=== PATIENT | female | born 1985 | race African-American/Black ===

== ENCOUNTER 2016-12-23 16:59 | Emergency (ER) | payer OTHER ==
[~2016-12-23] VITALS: Ht 165.1 cm; Wt 86.2 kg
[~2016-12-23 16:59] MED LIST: FLUT9.9S NS; LORA10TA68 PO; NAPR500T PO
[2016-12-23 17:02] VITALS: BP 147/104
[2016-12-23] MEDS ORDERED: PRED50TA PO (17:34)
[2016-12-23] MEDS ORDERED: AMOX1TAB61 PO (17:34)
[2016-12-23] MEDS ORDERED: FLUT9.9S NS (17:34)
--- NOTE | 2016-12-23 17:35 | PHYS DOC ---
Past Medical History Past Medical History: No Pertinent History Past Surgical History: No Surgical History Alcohol Use: Occasionally Drug Use: None Adult General Chief Complaint Chief Complaint: Congestion HPI HPI Patient is a 31 year old female who presents with nasal congestion that has been going on for 6 months. Patient denies any fever coughing or congestion. She states she missed her appointment at [facility]. Review of Systems Review of Systems Constitutional: See history of present illness Eyes: Denies change in visual acuity, redness, or eye pain [] HENT:nasal congestion Respiratory: See history of present illness Cardiovascular: No additional information not addressed in HPI [] GI: Denies abdominal pain, nausea, vomiting, bloody stools or diarrhea [] : Denies dysuria or hematuria [] Musculoskeletal: Denies back pain or joint pain [] Integument: Denies rash or skin lesions [] Neurologic: Denies headache, focal weakness or sensory changes [] Endocrine: Denies polyuria or polydipsia [] Allergies Allergies Allergies Coded Allergies Type Severity Reaction Last Updated Verified No Known Drug Allergies 09/16/13 No Physical Exam Physical Exam Constitutional: Well developed, well nourished, no acute distress, non-toxic appearance. [] HENT: Normocephalic, atraumatic, bilateral external ears normal, oropharynx moist, no oral exudates, Patient is congested nasally. Mild frontal and maxillary sinus tenderness on exam. Bilateral nasal turbinates are boggy and erythematous. Eyes: PERRLA, EOMI, conjunctiva normal, no discharge. [] Neck: Normal range of motion, no tenderness, supple, no stridor. [] Cardiovascular:Heart rate regular rhythm, no murmur [] Lungs & Thorax: Bilateral breath sounds clear to auscultation [] Abdomen: Bowel sounds normal, soft, no tenderness, no masses, no pulsatile masses. [] Skin: Warm, dry, no erythema, no rash. [] Back: No tenderness, no CVA tenderness. [] Extremities: No tenderness, no cyanosis, no clubbing, ROM intact, no edema. [] Neurologic: Alert and oriented X 3, normal motor function, normal sensory function, no focal deficits noted. [] Psychologic: Affect normal, judgement normal, mood normal. [] Current Patient Data Vital Signs Vital Signs Date Time Temp Pulse Resp B/P Pulse Ox O2 Delivery O2 Flow Rate FiO2 3/25/17 17:02 97.6 62 18 100 Room Air 97.6 EKG EKG [] Radiology/Procedures Radiology/Procedures [] Course & Med Decision Making Course & Med Decision Making Pertinent Labs and Imaging studies reviewed. (See chart for details) Patient is in the ED with a sinus infection. Discharged with a Augmentin and prednisone. Discharged with Flonase. Provided ENT for follow-up. Dragon Disclaimer Dragon Disclaimer This electronic medical record was generated, in whole or in part, using a voice recognition dictation system. Departure Departure Impression: Primary Impression: Acute sinusitis Disposition: HOME, SELF-CARE Condition: STABLE Referrals: UNKNOWN PCP NAME (PCP) follow up with Dr. Oakes ENT at [phone] Please let the office know you live in [facility]. Patient Instructions: Sinusitis Additional Instructions: You were seen for sinus infection. Kindly complete your antibiotics. Follow-up with the provided ENT doctor as soon as you can. Scripts Fluticasone Propionate (Flonase Allergy Relief)9.9 Ml [place].susp2 Sprays NS DAILY #1 BOTTLE Prov:HAMIDA POTTS APRN 12/23/16 Prednisone 50 Mg Tablet1 Tab PO DAILY #5 TAB Prov:HAMIDA POTTS APRN 12/23/16 Amoxicillin/Potassium Clav (Augmentin 875-125 Tablet)1 Each Tablet1 Tab PO BID # 20 TAB Prov:HAMIDA POTTS APRN 12/23/16 Problem Qualifiers Primary Impression: Acute sinusitis Sinusitis location: maxillary Recurrence: recurrent Qualified Code: J01.01 - Acute recurrent maxillary sinusitis HAMIDA POTTS APRN Dec 23, 2016 17:34
== END 2016-12-23 17:41 | disposition home or self-care (01) ==
LOC: ER 16:59
DX: J01.90 Acute sinusitis, unspecified (principal)
CPT/HCPCS: 99283

== ENCOUNTER 2017-01-31 12:06 | Emergency (ER) | payer OTHER ==
[~2017-01-31] VITALS: Ht 165.1 cm; Wt 85.7 kg
[~2017-01-31 12:06] MED LIST changes: +AMOX1TAB61 PO; +PRED50TA PO
[2017-01-31 12:15] VITALS: BP 138/91
--- NOTE | 2017-01-31 12:42 | PHYS DOC ---
Past Medical History Past Medical History: No Pertinent History Past Surgical History: No Surgical History Alcohol Use: None Drug Use: None Adult General Chief Complaint Chief Complaint: SEXUALLY TRANSMITTED DISEASE HPI HPI Patient is a 31 year old female presents emergency Department today with concerns for possible STD or /requesting the morning after pill after having intercourse last night. Patient states that she has no dysuria, pelvic pain, vaginal discharge or vaginal bleeding. Review of Systems Review of Systems Constitutional: Denies fever or chills [] Eyes: Denies change in visual acuity, redness, or eye pain [] HENT: Denies nasal congestion or sore throat [] Respiratory: Denies cough or shortness of breath [] Cardiovascular: No additional information not addressed in HPI [] GI: Denies abdominal pain, nausea, vomiting, bloody stools or diarrhea [] : Denies dysuria or hematuria [] Musculoskeletal: Denies back pain or joint pain [] Integument: Denies rash or skin lesions [] Neurologic: Denies headache, focal weakness or sensory changes [] Endocrine: Denies polyuria or polydipsia [] Allergies Allergies Allergies Coded Allergies Type Severity Reaction Last Updated Verified No Known Drug Allergies 09/16/13 No Physical Exam Physical Exam Constitutional: Well developed, well nourished, no acute distress, non-toxic appearance. [] HENT: Normocephalic, atraumatic, bilateral external ears normal, oropharynx moist, no oral exudates, nose normal. [] Eyes: PERRLA, EOMI, conjunctiva normal, no discharge. [] Neck: Normal range of motion, no tenderness, supple, no stridor. [] Cardiovascular:Heart rate regular rhythm, no murmur [] Lungs & Thorax: Bilateral breath sounds clear to auscultation [] Abdomen: Bowel sounds normal, soft, no tenderness, no masses, no pulsatile masses. [] Skin: Warm, dry, no erythema, no rash. [] Back: No tenderness, no CVA tenderness. [] Extremities: No tenderness, no cyanosis, no clubbing, ROM intact, no edema. [] Neurologic: Alert and oriented X 3, normal motor function, normal sensory function, no focal deficits noted. [] Psychologic: Affect normal, judgement normal, mood normal. [] Current Patient Data Vital Signs Vital Signs Date Time Temp Pulse Resp B/P Pulse Ox O2 Delivery O2 Flow Rate FiO2 5/3/17 12:15 97.6 77 16 99 Room Air 97.6 EKG EKG [] Radiology/Procedures Radiology/Procedures [] Course & Med Decision Making Course & Med Decision Making Patient presents emergency Department today with concerns for having unprotected intercourse last night she denies vaginal discharge, vaginal bleeding, pelvic pain. She denies any dysuria and hematuria. Patient requested the "morning after pill". 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 Dragon Disclaimer Dragon Disclaimer This electronic medical record was generated, in whole or in part, using a voice recognition dictation system. Departure Departure Impression: Primary Impression: Concern about STD in female without diagnosis Disposition: 01 HOME, SELF-CARE Condition: GOOD Referrals: UNKNOWN PCP NAME (PCP) Additional Instructions: 1. Be sure to return to the emergency department or go to the health department if you develop vaginal discharge, pelvic pain, difficulty urinating. 2. You can also follow up with a primary care doctor or body shop estimator. A pamphlet is provided to you for assistance in finding one. TATIANA MALDONADO January 31, 2017 12:42
== END 2017-01-31 12:52 | disposition home or self-care (01) ==
LOC: ER 12:06
DX: Z11.3 Encounter for screening for infections with a predominantly sexual mode of transmission (principal)
CPT/HCPCS: 99281

== ENCOUNTER 2017-07-13 09:29 | Emergency (ER) | payer OTHER ==
[~2017-07-13] VITALS: Ht 165.1 cm; Wt 88.5 kg
[2017-07-13 09:37] VITALS: BP 151/101
[2017-07-13] MEDS ORDERED: PSEUDOEPHEDRINE 30 MG TABLET. PO ONE (09:45)
[2017-07-13] MEDS ORDERED: guaiFENesin DM 600/30MG 1 TAB TAB.ER.12H PO ONE (09:45)
[2017-07-13] MEDS ORDERED: PRED20TA PO (09:49)
[2017-07-13] MEDS ORDERED: AMOX1TAB61 PO (09:49)
--- NOTE | 2017-07-13 09:49 | PHYS DOC ---
Past Medical History Past Medical History: Anxiety Past Surgical History: No Surgical History Alcohol Use: Rarely Drug Use: None Adult General Chief Complaint Chief Complaint: COUGH HPI HPI Patient is a 32 year old female presents to the emergency department with a history of cough, congestion and maxillary sinu pressure for the last week. She states she has used her flonase twice without relief. She denies fever, chills, nausea or vomiting. Patient states she unable to breath out of her nose lastnight and felt like she was having anxiety issues. Review of Systems Review of Systems Constitutional: Denies fever or chills [] Eyes: Denies change in visual acuity, redness, or eye pain [] HENT: nasal congestion denies sore throat [] Respiratory: cough and shortness of breath when coughing and lying down[] Cardiovascular: No additional information not addressed in HPI [] GI: Denies abdominal pain, nausea, vomiting, bloody stools or diarrhea [] : Denies dysuria or hematuria [] Musculoskeletal: Denies back pain or joint pain [] Integument: Denies rash or skin lesions [] Neurologic: Denies headache, focal weakness or sensory changes [] Endocrine: Denies polyuria or polydipsia [] Current Medications Current Medications Current Medications Medications (Trade) Dose Ordered Sig/Casi Start Time Stop Time Status Last Admin Dose Admin Guaifenesin (MUCINEX ER with DM) 1 tab 1X ONCE 07/13/17 09:45 07/13/17 09:46 UNV Allergies Allergies Allergies Coded Allergies Type Severity Reaction Last Updated Verified No Known Drug Allergies 09/16/13 No Physical Exam Physical Exam Constitutional: Well developed, well nourished, no acute distress, non-toxic appearance. [] HENT: Normocephalic, atraumatic, bilateral external ears normal, oropharynx moist, no oral exudates, nose normal. Bilateral TM normal, throat with redness noted, no exudate noted. Patient with tenderness noted over the maxillary sinus areas. Eyes: PERRLA, EOMI, conjunctiva normal, no discharge. [] Neck: Normal range of motion, no tenderness, supple, no stridor. [] Cardiovascular:Heart rate regular rhythm, no murmur [] Lungs & Thorax: Bilateral breath sounds clear to auscultation [] Skin: Warm, dry, no erythema, no rash. [] Back: No tenderness Extremities: No tenderness, no cyanosis, no clubbing, ROM intact, no edema. [] Neurologic: Alert and oriented X 3, normal motor function, normal sensory function, no focal deficits noted. [] Psychologic: Affect normal, judgement normal, mood normal. [] Current Patient Data Vital Signs Vital Signs Date Time Temp Pulse Resp B/P (MAP) Pulse Ox O2 Delivery O2 Flow Rate FiO2 07/13/17 09:37 98.0 92 18 98 Room Air 98.0 EKG EKG [] Radiology/Procedures Radiology/Procedures [] Course & Med Decision Making Course & Med Decision Making Pertinent Labs and Imaging studies reviewed. (See chart for details) As instructed to continue to use her Flonase. Recommended Sudafed and Mucinex DM. She'll be provided with Augmentin and prednisone at discharge. Patient will be discharged home with recommendations to follow-up the primary care physician in the next week. Signs and symptoms to return back to emergency department been provided. All questions and concerns been answered at patient's bedside. Patient agrees with discharge instructions treatment regimens and follow-up recommendations. [] Dragon Disclaimer Dragon Disclaimer This electronic medical record was generated, in whole or in part, using a voice recognition dictation system. Departure Departure Impression: Primary Impression: Acute sinusitis Disposition: HOME, SELF-CARE Condition: STABLE Referrals: UNKNOWN PCP NAME (PCP) Patient Instructions: Sinusitis, [id number] Additional Instructions: Activity as tolerated Medication as prescribed Tylenol or Ibuprofen for fever, chills, or generalized body aches Sudafed and Mucinex DM as directed by manufacture over the counter Drink plenty of fluids Followup with your primary care provider in 5-7 days Return to emergency department as needed for signs and symptoms that become worse. Scripts Prednisone (PREDNISONE) 20 Mg Tablet 40 MG PO DAILY for 7 Days, #14 TAB Prov: STACY MACK APRN 07/13/17 Amoxicillin/Potassium Clav (AUGMENTIN 875-125 TABLET) 1 Each Tablet 1 TAB PO BID, #20 TAB Prov: STACY MACK APRN 07/13/17 Problem Qualifiers Primary Impression: Acute sinusitis Sinusitis location: unspecified location Recurrence: not specified as recurrent Qualified Codes: J01.90 - Acute sinusitis, unspecified STACY MACK APRN Jul 13, 2017 09:49
[2017-07-13] MEDS ORDERED: FLUT9.9S NS (09:55)
== END 2017-07-13 09:59 | disposition home or self-care (01) ==
LOC: ER 09:29
DX: J01.90 Acute sinusitis, unspecified (principal)
CPT/HCPCS: 99283

== ENCOUNTER 2017-08-31 14:29 | Emergency (ER) | payer OTHER ==
[~2017-08-31] VITALS: Ht 165.1 cm; Wt 88.5 kg
[~2017-08-31 14:29] MED LIST changes: +NAPR-683 PO; -NAPR500T PO; +PRED20TA PO
[2017-08-31] MEDS ORDERED: PRAZ2CAP2 PO (14:59)
[2017-08-31] MEDS ORDERED: VENL37.56 PO (15:00)
[2017-08-31] MEDS ORDERED: ASPIRIN CHEWABLE 81 MG TABLET. PO ONE (15:45)
[2017-08-31 15:58] LABS: BILIRUBIN,URINE NEGATIVE (NEG); GLUCOSE,URINE NEGATIVE (NEG); NITRITE,URINE NEGATIVE (NEG); PROTEIN,URINE NEGATIVE (NEG-TRACE); UROBILINOGEN,URINE 0.2 mg/dL (0.2 mg/dL)
--- NOTE | 2017-08-31 16:00 | EKG ---
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
[2017-08-31 16:02] LABS: BARBITURATES NEG (NEG); BENZODIAZEPINES NEG (NEG); CANNABINOIDS NEG (NEG); COCAINE NEG (NEG); METHADONE NEG (NEG); OPIATES NEG (NEG); PHENCYCLIDINE POS (NEG)
--- NOTE | 2017-08-31 16:02 | RAD ---
Portable chest, 08/31/2017: History: Hypertension, weakness and fatigue The heart size and pulmonary vascularity are normal. No pulmonary infiltrates are seen. There is no evidence of pleural fluid. IMPRESSION: No acute cardiopulmonary abnormality is detected.
[2017-08-31 16:06] LABS: BASO # 0.1 x10^3/uL (0.0-0.2); BASO % 1 % (0-3); EOS % 0 % (0-3); HEMATOCRIT 40.4 % (36.0-47.0); HEMOGLOBIN 13.5 g/dL (12.0-15.5); LYMPH # 1.2 x10^3/uL (1.0-4.8); LYMPH % 12 % (24-48); MEAN CORPUSCULAR HEMOGLOBIN 29 pg (25-35); MEAN CORPUSCULAR HGB CONC 33 g/dL (31-37); MEAN CORPUSCULAR VOLUME 87 fL (79-100); MONO % 6 % (0-9); NEUT % 81 % (31-73); PLATELET COUNT 206 x10^3/uL (140-400); RED BLOOD COUNT 4.66 x10^6/uL (3.50-5.40); WHITE BLOOD COUNT 10.4 x10^3/uL (4.0-11.0)
[2017-08-31 16:07] LABS: BACTERIA,URINE FEW /HPF (0-FEW); RBC,URINE 0 /HPF (0-2); SQUAMOUS EPITHELIAL CELL,UR FEW /LPF; WBC,URINE 0 /HPF (0-4)
[2017-08-31 16:18] LABS: CALCIUM 9.7 mg/dL (8.5-10.1); CREATININE 0.8 mg/dL (0.6-1.0); GFR 100.6; POTASSIUM 3.7 mmol/L (3.5-5.1)
--- NOTE | 2017-08-31 16:20 | ED.ADGEN ---
Past Medical History Past Medical History: Anxiety Additional Past Medical Histor: PTSD Past Surgical History: No Surgical History Alcohol Use: Occasionally Drug Use: Cocaine, Marijuana Adult General Chief Complaint Chief Complaint: CHEST PAIN HPI HPI Patient is a 32 year old woman, history of anxiety, PTSD, who presents emergency Department with multiple complaints. Patient states that earlier this afternoon, she began feeling generally unwell, states that she was feeling tired , thought that she maybe fever, and developed sharp shooting chest pains, and a feeling of constipation. Patient received a laxative did have a loose bowel movement, she denies any nausea or vomiting, diarrhea shortness of breath, any focal weakness, numbness or tingling, any recent travel or surgery. She states she 2 beers yesterday, denies any other ingestions or exposures, denies any suicidal homicidal ideations, states that "I just feel anxious". She states family issues as the source of her anxiety, states that she is having "a difficult time at home". She states she has been taking her antianxiety medications as directed, she is taking Effexor and Arina, states that there were increased 3 weeks ago by her primary care provider, she also sees a therapist at her next appointment is the 16 of September. She denies similar symptoms previously. No injuries, no recent travel or surgery, history of DVT or PE in herself or family members, no known history of cardiac disease in young people in her family. Review of Systems Review of Systems Constitutional: Denies fever or chills. [] Eyes: Denies change in visual acuity. [] HENT: Denies nasal congestion or sore throat. [] Respiratory: Denies cough or shortness of breath. [] Cardiovascular: Denies chest pain or edema. [] GI: Denies abdominal pain, nausea, vomiting, bloody stools or diarrhea. [] : Denies dysuria. [] Musculoskeletal: Denies back pain or joint pain. [] Integument: Denies rash. [] Neurologic: Denies headache, focal weakness or sensory changes. [] Endocrine: Denies polyuria or polydipsia. [] Lymphatic: Denies swollen glands. [] Psychiatric: Denies depression or anxiety. [] Current Medications Current Medications Allergies Allergies Allergies Coded Allergies Type Severity Reaction Last Updated Verified No Known Drug Allergies 09/16/13 No Physical Exam Physical Exam Constitutional: Well developed, well nourished, no acute distress, non-toxic appearance. [] HENT: Normocephalic, atraumatic, bilateral external ears normal, oropharynx moist, no oral exudates, nose normal. [] Eyes: PERRLA, EOMI, conjunctiva normal, no discharge. [] Neck: Normal range of motion, no tenderness, supple, no stridor. [] Cardiovascular:Heart rate regular rhythm, no murmur [] Lungs & Thorax: Bilateral breath sounds clear to auscultation [] Abdomen: Bowel sounds normal, soft, no tenderness, no masses, no pulsatile masses. [] Skin: Warm, dry, no erythema, no rash. [] Back: No tenderness, no CVA tenderness. [] Extremities: No tenderness, no cyanosis, no clubbing, ROM intact, no edema. [] Neurologic: Alert and oriented X 3, normal motor function, normal sensory function, no focal deficits noted. [] Psychologic: Affect normal, judgement normal, mood normal. [] Current Patient Data Vital Signs Vital Signs Date Time Temp Pulse Resp B/P (MAP) Pulse Ox O2 Delivery O2 Flow Rate FiO2 08/31/17 14:48 99.5 94 20 183/119 (140) 100 Room Air 99.5 Lab Values Laboratory Tests Test 08/31/17 14:55 08/31/17 14:59 Urine Collection Type Unknown Urine Color Straw Urine Clarity Clear Urine pH 6.0 Urine Specific [place] 1.010 Urine Protein Negative mg/dL (NEG-TRACE) Urine Glucose (UA) Negative mg/dL (NEG) Urine Ketones (Stick) Trace mg/dL (NEG) Urine Blood Negative (NEG) Urine Nitrite Negative (NEG) Urine Bilirubin Negative (NEG) Urine Urobilinogen Dipstick 0.2 mg/dL (0.2 mg/dL) Urine Leukocyte Esterase Negative (NEG) Urine RBC 0 /HPF (0-2) Urine WBC 0 /HPF (0-4) Urine Squamous Epithelial Cells Few /LPF Urine Bacteria Few /HPF (0-FEW) Urine Opiates Screen Neg (NEG) Urine Methadone Screen Neg (NEG) Urine Barbiturates Neg (NEG) Urine Phencyclidine Screen Pos (NEG) Urine Amphetamine/Methamphetamine Neg (NEG) Urine Benzodiazepines Screen Neg (NEG) Urine Cocaine Screen Neg (NEG) Urine Cannabinoids Screen Neg (NEG) Urine Ethyl Alcohol Neg (NEG) POC Urine HCG, Qualitative Hcg negative (Negative) EKG EKG EC: Sinus rhythm, heart rate 96 beats/minute, upright axis, QTC of 489, [place] of 84, QRS of 82, no ST elevations or depressions, patient with left axis deviation noted, some baseline artifact also noted, no prior for comparison, Amaryl ECG, does not meet STEMI criteria. As interpreted by me. Radiology/Procedures Radiology/Procedures [][facility] [address] [place] [address] IMAGING REPORT Signed PATIENT: DEJA CONRAD ACCOUNT: [id number] : 1985 LOCATION: ER AGE: 32 SEX: F EXAM STATUS: REG ER ORD. PHYSICIAN: FERNANDO OROURKE DO REASON: CP PROCEDURE: PORTABLE CHEST 1V Portable chest, 08/31/2017: History: Hypertension, weakness and fatigue The heart size and pulmonary vascularity are normal. No pulmonary infiltrates are seen. There is no evidence of pleural fluid. IMPRESSION: No acute cardiopulmonary abnormality is detected. DICTATED and SIGNED BY: TERRIE GRIMES MD DATE: 08/31/17 1558 CC: FERNANDO OROURKE DO; UNKNOWN PCP NAME ~ Course & Med Decision Making Course & Med Decision Making Pertinent Labs and Imaging studies reviewed. (See chart for details) Patient states that she feels illnesses or anxiety, is experiencing intermittent sharp chest pains, denies any shortness breath, any other concerning history. She did deny any drugs or alcohol, or taking any medications to treat her symptoms, is complaining of generalized malaise as well. She is agreeable to receiving laboratory studies and chest x-ray. Chest x- ray was unremarkable, laboratory studies did not reveal any concerning findings , aside from a urine drug screen positive for PCP. As stated, patient denies any medications that could be causing a false positive, also denies any drug use. Noted to have trace ketones in the urine, tolerating by mouth fluids in the ED. While awaiting a second troponin to follow the HEART score, I was contacted by the nursing staff that the patient had pulled out her IV, stating that she was leaving AGAINST MEDICAL ADVICE. I did go back and speak with the patient, she states that "I'm cold and I'm hungry and I want to leave". She otherwise has no complaints at this time. After additional discussion patient is agreeable to receiving a second troponin and second ECG per the score. Her score is 1, for hypertension. Blood pressure has improved in the ED. Repeat ECG did not reveal any acutely concerning findings, patient again is stating that she wants to leave, I did discuss with patient importance of follow-up, instructed her to call her primary care provider for follow-up, and also call her therapist to see if she can get an earlier appointment, to continue her medications as instructed, she may be experiencing a viral illness, and pushing fluids and using [id number] medications such as acetaminophen and ibuprofen is appropriate, as would be return to the ED at any time for additional evaluation. Patient was also given the crisis RSI number to contact that she does feel overwhelmed. Patient did voice understanding, she exited the emergency department without difficulty with plan and precautions as above. Dragon Disclaimer Dragon Disclaimer This electronic medical record was generated, in whole or in part, using a voice recognition dictation system. Departure Impression: Primary Impression: Anxiety Additional Impression: Chest pain Disposition: 01 HOME, SELF-CARE Condition: IMPROVED Problem Qualifiers FERNANDO OROURKE DO Aug 31, 2017 16:20
[2017-08-31 16:24] LABS: ALBUMIN 4.7 g/dL (3.4-5.0); ALBUMIN/GLOBULIN RATIO 1.5 (1.0-1.7); TOTAL BILIRUBIN 0.6 mg/dL (0.2-1.0); TOTAL PROTEIN 7.9 g/dL (6.4-8.2)
[2017-08-31 17:45] VITALS: BP 183/117
--- NOTE | 2017-09-01 09:07 | EKG ---
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
== END 2017-08-31 18:17 | disposition home or self-care (01) ==
LOC: ER 14:29 → UNDOADMIN 15:40 → 5 NORTH 15:40 → ER 18:17
DX: R07.89 Other chest pain (principal); F41.9 Anxiety disorder, unspecified; F43.10 Post-traumatic stress disorder, unspecified; F14.10 Cocaine abuse, uncomplicated; F12.10 Cannabis abuse, uncomplicated
CPT/HCPCS: 36415; 71010; 80053; 80307; 81001; 81025; 83690; 83880; 84484; 85025; 93005; 99285-25; G0479

== ENCOUNTER 2018-01-21 15:46 | Emergency (ER) | payer OTHER | END 2018-01-21 16:40 | disposition home or self-care (01) | LOC: ER 15:46 | DX: J30.9 Allergic rhinitis, unspecified (principal); F43.10 Post-traumatic stress disorder, unspecified; F14.10 Cocaine abuse, uncomplicated; F12.10 Cannabis abuse, uncomplicated | CPT/HCPCS: 99283 ==

== ENCOUNTER 2019-03-29 12:50 | Emergency (ER) | payer OTHER ==
[~2019-03-29] VITALS: Ht 165.1 cm; Wt 90.7 kg
[~2019-03-29 12:50] MED LIST changes: +PRAZ2CAP2 PO; +VENL37.56 PO
[2019-03-29 13:15] VITALS: BP 164/101
--- NOTE | 2019-03-29 13:28 | PHYS DOC ---
Past Medical History Past Medical History: Anxiety Additional Past Medical Histor: PTSD Past Surgical History: No Surgical History Alcohol Use: Occasionally Drug Use: Cocaine, Marijuana Adult General Chief Complaint Chief Complaint: Congestion HPI HPI Patient is a 33 year old female presents with hoarseness, sore throat, headache, congestion, runny nose been ongoing for 1 week. Also has left elbow swelling. Has been taking Mucinex, Tylenol, Flonase, and Advil at home. Helped some but states her pain as 8 out of 10 and describes as pressure. Review of Systems Review of Systems Constitutional: Denies fever or chills [] Eyes: Denies change in visual acuity, redness, or eye pain [] HENT: Reports nasal congestion and sore throat [] Respiratory: Reports cough but denies shortness of breath [] Cardiovascular: No additional information not addressed in HPI [] GI: Denies abdominal pain, nausea, vomiting, bloody stools or diarrhea [] : Denies dysuria or hematuria [] Musculoskeletal: Denies back pain or joint pain [] Integument: Denies rash or skin lesions [] Neurologic: Reports headache denies focal weakness or sensory changes [] Endocrine: Denies polyuria or polydipsia [] Complete systems were reviewed and found to be within normal limits, except as documented in this note. Current Medications Current Medications Current Medications Medications (Trade) Dose Ordered Sig/Casi Start Time Stop Time Status Last Admin Dose Admin Dexamethasone Sodium Phosphate (Decadron) 10 mg 1X STAT 03/29/19 13:30 03/29/19 13:31 DC 03/29/19 13:49 10 MG Allergies Allergies Allergies Coded Allergies Type Severity Reaction Last Updated Verified No Known Drug Allergies 09/16/13 No Physical Exam Physical Exam Constitutional: Well developed, well nourished, no acute distress, non-toxic appearance. [] HENT: Normocephalic, atraumatic, bilateral external ears normal, oropharynx moist, no oral exudates, erythema to the throat, nose normal. Has frontal sinus tenderness Eyes: PERRLA, EOMI, conjunctiva normal, no discharge. [] Neck: Normal range of motion, no tenderness, supple, no stridor. [] Cardiovascular:Heart rate regular rhythm, no murmur [] Lungs & Thorax: Bilateral breath sounds clear to auscultation [] Abdomen: Bowel sounds normal, soft, no tenderness, no masses, no pulsatile masses. [] Skin: Warm, dry, no erythema, no rash. [] Back: No tenderness, no CVA tenderness. [] Extremities: No tenderness, no cyanosis, no clubbing, ROM intact, no edema. [] Neurologic: Alert and oriented X 3, normal motor function, normal sensory function, no focal deficits noted. [] Psychologic: Affect normal, judgement normal, mood normal. [] Current Patient Data Vital Signs Vital Signs Date Time Temp Pulse Resp B/P (MAP) Pulse Ox O2 Delivery O2 Flow Rate FiO2 03/29/19 13:15 98.0 85 16 164/101 (122) 96 Room Air 98.0 EKG EKG [] Radiology/Procedures Radiology/Procedures [] Course & Med Decision Making Course & Med Decision Making Pertinent Labs and Imaging studies reviewed. (See chart for details) Appears to have an URI likely viral in nature. Will give Dexamethasone and have start taking zyrtec at home. Patient is agreeable to this. Dragon Disclaimer Dragon Disclaimer This electronic medical record was generated, in whole or in part, using a voice recognition dictation system. Departure Departure Impression: Primary Impression: Upper respiratory infection Disposition: HOME, SELF-CARE Condition: STABLE Referrals: UNKNOWN PCP NAME (PCP) Patient Instructions: Upper Respiratory Infection, Adult Additional Instructions: Thank you for visiting [facility]. We appreciate you trusting us with your care. If any additional problems come up don't hesitate to return to visit us. Please follow up with your primary care provider so they can plan additional care if needed and know about the problem that you had. If symptoms worsen come back to the Emergency Department. Any concerning symptoms that start such as chest pain, shortness of Air, weakness or numbness on one side of the body, running high fevers or any other concerning symptoms return to the ER. Please add Zyrtec daily to the medication you are taking for symptom management. Problem Qualifiers Primary Impression: Upper respiratory infection URI type: unspecified viral URI Qualified Codes: J06.9 - Acute upper respiratory infection, unspecified JOVANI ZAVALA APRN Mar 29, 2019 13:28
[2019-03-29] MEDS ORDERED: DEXAMETHASONE SOD PHOS 20 MG/5 ML VIAL. PO STA (13:30)
== END 2019-03-29 13:51 | disposition home or self-care (01) ==
LOC: ER 12:50
DX: J06.9 Acute upper respiratory infection, unspecified (principal); R51 Headache; F41.9 Anxiety disorder, unspecified
CPT/HCPCS: 99282; J1100

== ENCOUNTER 2021-10-09 15:32 | Emergency (ER) | payer MEDICAID, OTHER ==
[~2021-10-09] VITALS: Ht 165.1 cm; Wt 84.5 kg
[2021-10-09 18:40] VITALS: BP 144/81
[2021-10-09] MEDS: DEXAMETHASONE 4 MG TABLET PO ONE (20:00)
[2021-10-09] MEDS: IBUPROFEN 200 MG TABLET. PO ONE (20:00)
[2021-10-09] MEDS: ONDANSETRON ODT 4 MG TAB.RAPDIS. PO ONE (20:00)
--- NOTE | 2021-10-09 20:03 | PHYS DOC ---
Past Medical History Past Medical History: Anxiety Additional Past Medical Histor: PTSD Past Surgical History: No Surgical History Smoking Status: Current Every Day Smoker Alcohol Use: Occasionally Drug Use: Cocaine, Marijuana General Adult EDM: Chief Complaint: DIZZY/LIGHT HEADED HPI: HPI: Patient is a 36 year old female who presents with 5 days of head congestion, sinus pressure, cough, sore throat, nausea and some constipation causing her to have bloating. She states that her son was sick with a fever but it is gone away. She is vaccinated for Covid. She states that she took cold and flu medication this morning. She states she ate [employer] today and now she is feeling nauseated. Past medical history of anxiety, PTSD, smoking. At this time she rates her intermittent headache aching 9 out of 10. This is not the worst headache she is ever had. Patient denies abdominal pain, vomiting, diarrhea, chest pain, shortness of air, back pain, syncope, numbness or tingling, focal weakness, diarrhea. Review of Systems: Review of Systems: Constitutional: Denies fever or chills. [] Eyes: Denies change in visual acuity. [] HENT: Denies nasal congestion or sore throat. [] Respiratory: Denies cough or shortness of breath. [] Cardiovascular: Denies chest pain or edema. [] GI: Denies abdominal pain, nausea, vomiting, bloody stools or diarrhea. [] : Denies dysuria. [] Musculoskeletal: Denies back pain or joint pain. [] Integument: Denies rash. [] Neurologic: Denies headache, focal weakness or sensory changes. [] Endocrine: Denies polyuria or polydipsia. [] Lymphatic: Denies swollen glands. [] Psychiatric: Denies depression or anxiety. [] Heart Score: C/O Chest Pain: No Current Medications: Current Medications Medications (Trade) Dose Ordered Sig/Casi Start Time Stop Time Status Last Admin Dose Admin Dexamethasone (Decadron) 10 mg 1X ONCE 10/09/21 20:00 10/09/21 20:01 Ibuprofen (Motrin) 600 mg 1X ONCE 10/09/21 20:00 10/09/21 20:01 Ondansetron HCl (Zofran Odt) 4 mg 1X ONCE 10/09/21 20:00 10/09/21 20:01 Allergies: Allergies: Allergies Coded Allergies Type Severity Reaction Last Updated Verified No Known Drug Allergies 09/16/13 No Physical Exam: PE: Constitutional: Well developed, well nourished, no acute distress, non-toxic appearance. [] HENT: Normocephalic, atraumatic, bilateral external ears normal, oropharynx moist, no oral exudates, nose normal. Postnasal drip. Nasal congestion. Sinus tenderness with palpation over maxillary and frontal sinuses. [] Eyes: PERRLA, EOMI, conjunctiva normal, no discharge. [] Neck: Normal range of motion, no tenderness, supple, no stridor. [] Cardiovascular:Heart rate regular rhythm, no murmur [] Lungs & Thorax: Bilateral breath sounds clear to auscultation [] Abdomen: Bowel sounds normal, soft, no tenderness, no masses, no pulsatile masses. [] Skin: Warm, dry, no erythema, no rash. [] Back: No tenderness, no CVA tenderness. [] Extremities: No tenderness, no cyanosis, no clubbing, ROM intact, no edema. [] Neurologic: Alert and oriented X 3, normal motor function, normal sensory function, no focal deficits noted. [] Psychologic: Affect normal, judgement normal, mood normal. [] Current Patient Data: Vital Signs: Vital Signs Date Time Temp Pulse Resp B/P (MAP) Pulse Ox O2 Delivery O2 Flow Rate FiO2 10/09/21 18:40 98.0 61 17 144/81 (102) 100 Room Air 98.0 EKG: EKG: [] Radiology/Procedures: Radiology/Procedures: [] Impression: [facility] [address] [place], [place] [id number] IMAGING REPORT Signed PATIENT: DEJA CONRAD ACCOUNT: [id number] : 1985 LOCATION: ER AGE: 36 SEX: F EXAM STATUS: REG ER ORD. PHYSICIAN: STACY SCHULER APRN REASON: BLOATING, CONSTIPATION, NAUSEA PROCEDURE: ACUTE ABDOMEN SERIES Exam: Acute abdominal series INDICATION: Bloating, constipation TECHNIQUE: Frontal view of chest with upright and supine views the abdomen Comparisons: None FINDINGS: The cardiomediastinal silhouette and pulmonary vessels are within normal limits. The lung and pleural spaces are clear. Air and stool are noted throughout the colon to level the rectum in a nonobstructive bowel gas pattern. No suspicious masses or calcifications. Visualized osseous structures are unremarkable. IMPRESSION: 1. No acute cardiopulmonary process. 2. Nonobstructive bowel gas pattern. Electronically signed by: Nic Jacques MD (10/09/2021 9:43 PM) [facility] DICTATED and SIGNED BY: NIC JACQUES MD DATE: 10/09/21 [id number] 0 Course & Med Decision Making: Course & Med Decision Making Pertinent Labs and Imaging studies reviewed. (See chart for details) COVID-19 CRITERIA: The patient was evaluated during the global COVID-19 pandemic, and that diagnosis was suspected/considered upon their initial presentation. Their evaluation, treatment and testing was consistent with cur rent guidelines for patients who present with complaints or symptoms that may be related to COVID-19. See HPI. Alert and oriented x4. Ambulatory with a steady gait. Speaks in full clear sentences. Sinus pressure and pain noted with palpation over maxillary and frontal sinuses. Postnasal drip noted. Throat is pink without exudates or swelling. Lungs are clear all station all lobes. Afebrile. Mucous membranes are moist. Cap refill less than 2 seconds. Skin pink warm and dry. Abdomen is soft and nontender. Rapid covid negative, rapid flu negative, blood work generally unremarkable. Patient has sinusitis. She has elevated lipase but no abdominal tenderness or pain. Patient can follow up with primary care physician. [] Cary Disclaimer: Cary Disclaimer: This electronic medical record was generated, in whole or in part, using a voice recognition dictation system. COVID-19 Patient Risks: Age 65 or older: No Sign of co-morbidity: Yes Exp to person + for COVID: No Exp to PUI: Yes Travel from affected area: No Lower respiratory symptoms: Yes Fever: No Other: Yes (nausea, sore throat) PPE Use: Full PPE with N95 mask or PAPR: Yes Departure Departure Impression: Primary Impression: Acute sinusitis Qualified Codes: J01.90 - Acute sinusitis, unspecified Additional Impressions: Cocaine abuse Marijuana abuse Disposition: HOME / SELF CARE / HOMELESS Condition: STABLE Referrals: UNKNOWN PCP NAME (PCP) Patient Instructions: Sinusitis Additional Instructions: Follow up with primary care provider. Drink plenty of fluids. Take tylenol or Ibuprofen for pain every 6 hours. Take medication as prescribed and with food. Scripts Azithromycin (AZITHROMYCIN TABLET) 250 Mg Tablet 1 PKG PO UD for 5 Days, #6 TAB 0 Refills 2 the first day followed by 1 for days 2-5 Prov: STACY SCHULER APRN 10/09/21 STACY SCHULER APRN Oct 09, 2021 20:03
[2021-10-09 20:17] LABS: BASO % 1 % (0-3); EOS # 0.3 x10^3/uL (0.0-0.7); EOS % 5 % (0-3); HEMATOCRIT 38.3 % (36.0-47.0); HEMOGLOBIN 12.7 g/dL (12.0-15.5); LYMPH # 2.4 x10^3/uL (1.0-4.8); LYMPH % 44 % (24-48); MEAN CORPUSCULAR HEMOGLOBIN 29 pg (25-35); MEAN CORPUSCULAR HGB CONC 33 g/dL (31-37); MEAN CORPUSCULAR VOLUME 88 fL (79-100); MONO # 0.7 x10^3/uL (0.0-1.1); MONO % 13 % (0-9); NEUT # 2.1 x10^3/uL (1.8-7.7); NEUT % 38 % (31-73); PLATELET COUNT 158 x10^3/uL (140-400); RED BLOOD COUNT 4.36 x10^6/uL (3.50-5.40); RED CELL DISTRIBUTION WIDTH 12.9 % (11.5-14.5); WHITE BLOOD COUNT 5.5 x10^3/uL (4.0-11.0)
[2021-10-09 20:23] LABS: CALCIUM 8.7 mg/dL (8.5-10.1); CREATININE 0.9 mg/dL (0.6-1.0); GFR 85.7; POTASSIUM 3.3 mmol/L (3.5-5.1)
[2021-10-09 20:28] LABS: ALBUMIN 3.4 g/dL (3.4-5.0); ALBUMIN/GLOBULIN RATIO 0.9 (1.0-1.7); TOTAL BILIRUBIN 0.2 mg/dL (0.2-1.0); TOTAL PROTEIN 7.2 g/dL (6.4-8.2)
[2021-10-09 20:30] LABS: INFLUENZA A PATIENT NEGATIVE (NEGATIVE); INFLUENZA B PATIENT NEGATIVE (NEGATIVE)
[2021-10-09 21:31] LABS: BILIRUBIN,URINE NEGATIVE (NEG); CLARITY,URINE CLOUDY; COLOR,URINE YELLOW; NITRITE,URINE NEGATIVE (NEG); PH,URINE 6.5 (<5.0-8.0); PROTEIN,URINE NEGATIVE (NEG-TRACE); UROBILINOGEN,URINE 0.2 mg/dL (0.2 mg/dL)
[2021-10-09 21:33] LABS: AMORPHOUS SEDIMENT,UR PRESENT /HPF; BACTERIA,URINE FEW /HPF (0-FEW); RBC,URINE 0 /HPF (0-2); WBC,URINE OCC /HPF (0-4)
[2021-10-09 21:35] LABS: AMPHETAMINE/METHAMPHETAMINE NEG (NEG); BARBITURATES NEG (NEG); BENZODIAZEPINES NEG (NEG); CANNABINOIDS POS (NEG); COCAINE POS (NEG); METHADONE NEG (NEG); OPIATES NEG (NEG); PHENCYCLIDINE NEG (NEG)
--- NOTE | 2021-10-09 21:46 | RAD ---
Exam: Acute abdominal series INDICATION: Bloating, constipation TECHNIQUE: Frontal view of chest with upright and supine views the abdomen Comparisons: None FINDINGS: The cardiomediastinal silhouette and pulmonary vessels are within normal limits. The lung and pleural spaces are clear. Air and stool are noted throughout the colon to level the rectum in a nonobstructive bowel gas patter n. No suspicious masses or calcifications. Visualized osseous structures are unremarkable. IMPRESSION: 1. No acute cardiopulmonary process. 2. Nonobstructive bowel gas pattern. Electronically signed by: Nic Womack MD (10/09/2021 9:43 PM) [facility]
[2021-10-09] MEDS ORDERED: AZIT250T6 PO (21:56)
== END 2021-10-09 22:20 | disposition home or self-care (01) ==
LOC: ER 15:32
DX: J01.90 Acute sinusitis, unspecified (principal); Z20.822 Contact with and (suspected) exposure to COVID-19; F14.10 Cocaine abuse, uncomplicated; F12.10 Cannabis abuse, uncomplicated; F17.200 Nicotine dependence, unspecified, uncomplicated; F43.10 Post-traumatic stress disorder, unspecified
CPT/HCPCS: 36415; 74022; 80053; 80307; 81001; 83690; 85025; 87086; 87426; 87804; 99284; U0003; U0005